=== PATIENT | male | born 1960 | race Caucasian/White ===

== ENCOUNTER → 2021-10-12 16:31 | Outpatient (CLI) | payer MEDICAID, SELFPAY ==
--- NOTE | 2021-10-12 17:00 | RAD_ITS ---
EXAM: XR CERVICAL SPINE, 4 OR 5 VIEWS : 1960 CLINICAL INDICATION: RADICULOPATHY CERVICAL TECHNIQUE: Frontal, lateral and oblique views of the cervical spine. This report was created using [employer] report [employer] technology. COMPARISON: None. FINDINGS: VERTEBRAE: Unremarkable. Preserved vertebral body height. No acute fracture. No spondylolisthesis. Preservation of the normal cervical lordosis. No significant facet arthropathy. DISC SPACES: There is disc space narrowing at C5-6 and C6/7. SOFT TISSUES: Unremarkable. No prevertebral soft tissue widening. LUNG APICES: Clear. RAD/Cerv Spine 2 or 3 Views IMPRESSION: Degenerative changes in the lower lumbar spine with disc space narrowing. No acute osseous abnormalities. at 0308 Reported and signed by: Dexter Bobo MD Electronically Signed: Dexter Bobo MD at 3:07 EST Tel , Service support ,
== END ==
PROVIDERS: Referring Provider Anesthesiology Pain Medicine; Visit Provider Anesthesiology Pain Medicine
DX: M54.12 Radiculopathy, cervical region (principal)
CPT/HCPCS: 72040